=== PATIENT | female | born 1950 | race Caucasian/White ===

== ENCOUNTER 2016-10-31 20:06 | Emergency (ER) | payer MEDICARE, MEDICAID ==
[~2016-10-31] VITALS: Ht 165.1 cm; Wt 50.0 kg
[~2016-10-31 20:06] MED LIST: ALPR0.5T96 PO; ASPI-1035 PO
[2016-10-31 21:46] LABS: EOSINOPHILS % 1.9 % (0.0-5.0); HEMATOCRIT. 37.8 % (36.0-48.0); HEMOGLOBIN. 12.4 g/dL (12.0-16.0); LYMPHOCYTES % 23.9 % (20.0-50.0); MEAN CORPUSCULAR HEMOGLOBIN 27.8 pg (28.0-32.0); MEAN CORPUSCULAR HGB CONC 32.9 g/dL (31.0-37.0); MEAN CORPUSCULAR VOLUME 84.5 fL (81.0-99.0); MEAN PLATELET VOLUME 7.6 fl (7.4-10.4); MONOCYTES % 6.7 % (2.0-8.0); NEUTROPHILS % 66.5 % (40.0-76.0); PLATELET 202 x1000/uL (130-400); RED BLOOD CELL COUNT 4.47 mill/uL (4.2-5.4); RED CELL DISTRIBUTION WIDTH 16.1 % (11.6-14.6); WHITE BLOOD COUNT 8.2 x1000/uL (4.5-11.0)
[2016-10-31 21:48] LABS: CLARITY URINE CLEAR (CLEAR); COLOR URINE YELLOW (YELLOW); GLUCOSE URINE NEGATIVE (NEGATIVE); KETONES URINE NEGATIVE (NEGATIVE); LEUKOCYTE ESTERASE URINE NEGATIVE (NEGATIVE); NITRITE URINE NEGATIVE (NEGATIVE); OCCULT BLOOD URINE NEGATIVE (NEGATIVE); PH URINE 7.5 (4.5-8.0); PROTEIN URINE NEGATIVE (NEGATIVE); SPECIFIC GRAVITY URINE 1.007 (1.005-1.030); UROBILINOGEN URINE 0.2 E.U./dL (0.2-1.0)
[2016-10-31 21:54] LABS: PARTIAL THROMBOPLASTIN TIME 28.9 sec (24.0-34.0); PROTHROMBIN TIME 10.9 sec
[2016-10-31 21:55] LABS: ALBUMIN 3.6 g/dL (3.4-5.0); ANION GAP 14; CALCIUM 9.3 mg/dL (8.5-10.1); CARBON DIOXIDE 28 mEq/L (21-32); CHLORIDE 102 mEq/L (98-107); INDEX HEMOLYSI 1 (1-3); INDEX ICTERIC 1 (1-4); INDEX LIPEMIC 1 (1-3); UREA NITROGEN BLOOD 15 mg/dL (7-21)
[2016-10-31 22:01] LABS: ALANINE AMINOTRANSFERASE 40 IU/L (13-61); eGFR > 60 mL/min (>60)
[2016-10-31 22:02] LABS: TROPONIN I 0.05 ng/mL (0.00-0.04)
[2016-10-31] MEDS ORDERED: ACETAMINOPHEN 325MG TABLET PO ONE (22:15)
[2016-10-31] MEDS ORDERED: LABETALOL 5MG/ML SYR 20 MG/4 ML SYRINGE IV ONE (22:15)
[2016-10-31 23:54] VITALS: BP 179/84
== END 2016-10-31 23:55 | disposition home or self-care (01) ==
LOC: ER 20:06
DX: F15.10 Other stimulant abuse, uncomplicated (principal); I45.6 Pre-excitation syndrome; R00.0 Tachycardia, unspecified; I10 Essential (primary) hypertension; Z86.73 Personal history of transient ischemic attack (TIA), and cerebral infarction without residual deficits; G40.909 Epilepsy, unspecified, not intractable, without status epilepticus; Z86.718 Personal history of other venous thrombosis and embolism; Z79.01 Long term (current) use of anticoagulants; Z88.6 Allergy status to analgesic agent
CPT/HCPCS: 36415; 71010; 80053; 81003; 84484; 85025; 85610; 85730; 93005; 96374; 99285; J3490

== ENCOUNTER 2017-02-22 14:12 | Inpatient (IN) | payer MEDICARE, MEDICAID ==
[~2017-02-22] VITALS: Ht 170.2 cm; Wt 53.2 kg
[~2017-02-22 14:12] MED LIST changes: -ASPI-1035 PO; +ASPI-1159 PO; +CLOP75TA33 PO; +HYDR12.54 PO; +LOSA50TA20 PO
[2017-02-22] MEDS ORDERED: MORPHINE SULFATE 4 MG/ML CPJ (NOT FOR IM USE) IV STA (14:33)
[2017-02-22] MEDS ORDERED: ASPIRIN 81MG TABLET PO STA (14:33)
[2017-02-22] MEDS ORDERED: ONDANSETRON HCL 4MG/2ML VIAL IV STA (14:33)
[2017-02-22] MEDS ORDERED: NITROGLYCERIN OINT 1GM/INCH UDPKT TD STA (14:33)
[2017-02-22 15:36] LABS: BASOPHILS % 0.6 % (0.0-2.0); EOSINOPHILS % 3.2 % (0.0-5.0); HEMATOCRIT. 41.6 % (36.0-48.0); HEMOGLOBIN. 13.6 g/dL (12.0-16.0); LYMPHOCYTES % 13.9 % (20.0-50.0); MEAN CORPUSCULAR HEMOGLOBIN 28.9 pg (28.0-32.0); MEAN CORPUSCULAR VOLUME 88.4 fL (81.0-99.0); MEAN PLATELET VOLUME 7.4 fl (7.4-10.4); MONOCYTES % 6.2 % (2.0-8.0); NEUTROPHILS % 76.1 % (40.0-76.0); PLATELET 249 x1000/uL (130-400); RED BLOOD CELL COUNT 4.71 mill/uL (4.2-5.4); RED CELL DISTRIBUTION WIDTH 16.7 % (11.6-14.6)
[2017-02-22 15:38] LABS: CHLORIDE 101 mEq/L (98-107)
[2017-02-22 15:40] LABS: INR 1.1; PARTIAL THROMBOPLASTIN TIME 26.3 sec (24.0-34.0); PROTHROMBIN TIME 11.2 sec
[2017-02-22 15:43] LABS: CARBON DIOXIDE 29 mEq/L (21-32)
[2017-02-22 15:48] LABS: TROPONIN I < 0.02 ng/mL (0.00-0.04)
[2017-02-22] MEDS ORDERED: HYDRALAZINE 20MG/ML VIAL ONE (16:01)
[2017-02-22 16:38] VITALS: BP 169/70
[2017-02-22 16:44] VITALS: BP 169/70
[2017-02-22 17:00] VITALS: BP 177/133
[2017-02-22] MEDS ORDERED: FLUT1DIS6 IH (17:33)
[2017-02-22] MEDS ORDERED: CILO100T PO (17:33)
[2017-02-22] MEDS ORDERED: ATOR40TA70 PO (17:33)
[2017-02-22] MEDS ORDERED: HYDR28CR28 TP (17:33)
[2017-02-22] MEDS ORDERED: FLUT12AE3 IH (17:33)
[2017-02-22] MEDS ORDERED: HYDR25TA PO (17:33)
[2017-02-22] MEDS ORDERED: AMLO10TA80 PO (17:33)
[2017-02-22] MEDS ORDERED: DIPH50CA38 PO (17:33)
[2017-02-22] MEDS ORDERED: ALBU6.7H IH (17:33)
[2017-02-22] MEDS ORDERED: PENT400T2 PO (17:33)
[2017-02-22] MEDS ORDERED: NICO1PAT15 TP (17:33)
[2017-02-22] MEDS ORDERED: METH10OR11 PO (17:34)
[2017-02-22] MEDS ORDERED: GUAIFENESIN 200MG/10ML SUGAR FREE UDC PO PRN (17:45)
[2017-02-22] MEDS ORDERED: MAGNESIUM/ALUMINUM HYDROXIDE/SIMETHICONE 30ML UDC PO PRN (17:45)
[2017-02-22] MEDS ORDERED: TRAMADOL 50MG TABLET PO PRN (17:45)
[2017-02-22] MEDS ORDERED: ZOLPIDEM TARTRATE 5MG TABLET PO PRN (17:45)
[2017-02-22] MEDS ORDERED: ACETAMINOPHEN 325MG TABLET PO PRN (17:45)
[2017-02-22] MEDS ORDERED: NA PHOS,M-B/NA PHOS,DI-BA ENEMA 118ML PR PRN (17:45)
[2017-02-22] MEDS ORDERED: NITROGLYCERIN 0.4MG TABLET SL SL PRN (17:45)
[2017-02-22] MEDS ORDERED: IPRATROPIUM/ALBUTEROL 0.5-3(2.5)MG/3ML NEB INH PRN (17:45)
[2017-02-22] MEDS ORDERED: DIPHENHYDRAMINE 50MG/ML VIAL IV PRN (17:45)
[2017-02-22] MEDS ORDERED: CLONIDINE 0.1MG TABLET PO PRN (17:45)
[2017-02-22] MEDS ORDERED: DOCUSATE SODIUM 100MG CAPSULE PO PRN (17:45)
[2017-02-22] MEDS ORDERED: ONDANSETRON HCL 4MG/2ML VIAL IV PRN (17:45)
[2017-02-22] MEDS ORDERED: ENOXAPARIN 40MG/0.4ML SYR SUBCUT SCH (18:00)
[2017-02-22] MEDS: LORAZEPAM 2MG/ML CPJ IV PRN ×2 (18:26→20:48)
[2017-02-22 18:27] VITALS: BP 177/72
[2017-02-22] MEDS: CLOPIDOGREL 75MG TABLET PO SCH (18:27)
[2017-02-22] MEDS: AMLODIPINE 10MG TABLET PO SCH (18:27)
[2017-02-22] MEDS ORDERED: PNEUMOCOCCAL 23-VAL P-SAC VAC 0.5 ML IM ONE (19:15)
[2017-02-22 19:53] VITALS: BP 173/73
[2017-02-22] MEDS: SUCRALFATE 1 G/10 ML UDC PO SCH (20:47)
[2017-02-22] MEDS: LISINOPRIL 20MG TABLET PO SCH (20:48)
[2017-02-22] MEDS: METOPROLOL TARTRATE 25MG TABLET PO SCH (20:48)
[2017-02-22] MEDS ORDERED: POTASSIUM CHLORIDE 20MEQ TABLET SR PO NR (21:00)
[2017-02-22 22:00] VITALS: BP 123/58
[2017-02-22 23:12] LABS: CREATINE KINASE 29 IU/L (26-192); CREATINE KINASE MB FRACTION 1.3 ng/mL (0.5-3.6); TROPONIN I < 0.02 ng/mL (0.00-0.04)
[2017-02-23] VITALS (8 sets, daily range): BP systolic 97–123; BP diastolic 37–66
[2017-02-23] MEDS ORDERED: MAGNESIUM 2 G PREMIX 50 ML IV NR (02:00)
[2017-02-23] MEDS: SUCRALFATE 1 G/10 ML UDC PO SCH ×2 (06:40→11:50)
[2017-02-23 06:52] LABS: CREATINE KINASE 23 IU/L (26-192); HDL CHOLESTEROL 44 mg/dL (40-59); LDL CHOLESTEROL 89 mg/dL (5-100); TROPONIN I < 0.02 ng/mL (0.00-0.04)
[2017-02-23 06:57] LABS: *AMPHETAMINES SCREEN URINE NEGATIVE (NEGATIVE); *BARBITURATES SCREEN URINE NEGATIVE (NEGATIVE); *BENZODIAZEPINES SCREEN URINE PRESUMTIVE POSITIVE (NEGATIVE); *COCAINE SCREEN URINE NEGATIVE (NEGATIVE); CANNABINOID URINE SCREEN NEGATIVE (NEGATIVE); OPIATES URINE SCREEN PRESUMTIVE POSITIVE (NEGATIVE); PHENCYCLIDINE URINE SCREEN NEGATIVE (NEGATIVE)
[2017-02-23 07:18] LABS: METHADONE URINE SCREEN PRESUMTIVE POSITIVE (NEGATIVE)
[2017-02-23] MEDS ORDERED: ASPIRIN 325MG EC TABLET PO SCH (09:00)
[2017-02-23] MEDS ORDERED: PANTOPRAZOLE SODIUM 40 MG/VIAL IV SCH (09:00)
[2017-02-23] MEDS: LORAZEPAM 2MG/ML CPJ IV PRN (09:01)
[2017-02-23] MEDS: METOPROLOL TARTRATE 25MG TABLET PO SCH (09:03)
[2017-02-23] MEDS: CLOPIDOGREL 75MG TABLET PO SCH (09:03)
[2017-02-23] MEDS: LISINOPRIL 20MG TABLET PO SCH (09:05)
[2017-02-23] MEDS: AMLODIPINE 10MG TABLET PO SCH (09:05)
[2017-02-23] MEDS ORDERED: BUDESONIDE 0.5MG/2ML NEB ONE (16:08)
== END 2017-02-23 13:17 | disposition home or self-care (01) | DRG 194 ==
LOC: ER 14:15 → 3WST 15:06 → EDBEDREQ 15:11 → ENRESERV 15:28
PROVIDERS: ADMIT Internal Medicine; ATTEND Internal Medicine
DX: I11.0 Hypertensive heart disease with heart failure (principal); J44.9 Chronic obstructive pulmonary disease, unspecified; I73.9 Peripheral vascular disease, unspecified; R07.89 Other chest pain; I25.10 Atherosclerotic heart disease of native coronary artery without angina pectoris; I50.33 Acute on chronic diastolic (congestive) heart failure; E78.00 Pure hypercholesterolemia, unspecified; E87.6 Hypokalemia; F17.210 Nicotine dependence, cigarettes, uncomplicated; I45.6 Pre-excitation syndrome; F19.10 Other psychoactive substance abuse, uncomplicated; G40.909 Epilepsy, unspecified, not intractable, without status epilepticus; Z79.82 Long term (current) use of aspirin; Z88.0 Allergy status to penicillin; Z88.6 Allergy status to analgesic agent; Z88.8 Allergy status to other drugs, medicaments and biological substances; Z79.899 Other long term (current) drug therapy; Z71.6 Tobacco abuse counseling
CPT/HCPCS: 36415; 71010; 80053; 80061; 80305; 82550; 82553; 83036; 83690; 83735; 83880; 84443; 84484; 85025; 85610; 85730; 90732; 93005; 93306; 93970; 96374; 96375; 99291; C9113; J0360; J1650; J2060; J2270; J2405; J3475; J7040; J7626

== ENCOUNTER 2017-03-31 16:28 | Emergency (ER) | payer MEDICARE, MEDICAID ==
[~2017-03-31] VITALS: Ht 170.2 cm; Wt 62.0 kg
[~2017-03-31 16:28] MED LIST changes: +ALBU6.7H IH; +ALPR0.5T PO; -ALPR0.5T96 PO; +AMLO10TA80 PO; +ATOR40TA70 PO; +CILO100T PO; +DIPH50CA38 PO; +FLUT12AE3 IH; +FLUT1DIS6 IH; -HYDR12.54 PO; +HYDR25TA PO; +HYDR28CR28 TP; +METH10OR11 PO; +NICO1PAT15 TP; +PENT400T2 PO
[2017-03-31 19:52] LABS: BASOPHILS % 0.9 % (0.0-2.0); EOSINOPHILS % 5.2 % (0.0-5.0); HEMATOCRIT. 31.7 % (36.0-48.0); HEMOGLOBIN. 10.7 g/dL (12.0-16.0); LYMPHOCYTES % 25.4 % (20.0-50.0); MEAN CORPUSCULAR HEMOGLOBIN 29.9 pg (28.0-32.0); MEAN CORPUSCULAR VOLUME 88.7 fL (81.0-99.0); MONOCYTES % 8.3 % (2.0-8.0); NEUTROPHILS % 60.2 % (40.0-76.0); PLATELET 170 x1000/uL (130-400); RED BLOOD CELL COUNT 3.57 mill/uL (4.2-5.4); RED CELL DISTRIBUTION WIDTH 15.3 % (11.6-14.6)
[2017-03-31 19:58] LABS: INR 1.1
[2017-03-31 20:09] LABS: CARBON DIOXIDE 26 mEq/L (21-32); CHLORIDE 110 mEq/L (98-107); TROPONIN I < 0.02 ng/mL (0.00-0.04)
[2017-03-31 21:10] LABS: *AMPHETAMINES SCREEN URINE NEGATIVE (NEGATIVE); *BARBITURATES SCREEN URINE NEGATIVE (NEGATIVE); *BENZODIAZEPINES SCREEN URINE PRESUMTIVE POSITIVE (NEGATIVE); *COCAINE SCREEN URINE NEGATIVE (NEGATIVE); CANNABINOID URINE SCREEN NEGATIVE (NEGATIVE); METHADONE URINE SCREEN PRESUMTIVE POSITIVE (NEGATIVE); OPIATES URINE SCREEN NEGATIVE (NEGATIVE); PHENCYCLIDINE URINE SCREEN NEGATIVE (NEGATIVE)
[2017-03-31 21:20] VITALS: BP 124/58
== END 2017-03-31 21:20 | disposition home or self-care (01) ==
LOC: ER 19:04
DX: I24.9 Acute ischemic heart disease, unspecified (principal); F11.10 Opioid abuse, uncomplicated; Z88.0 Allergy status to penicillin; Z88.6 Allergy status to analgesic agent; Z79.82 Long term (current) use of aspirin
CPT/HCPCS: 36415; 71010; 80048; 80305; 83880; 84484; 85025; 85610; 93005; 99285

== ENCOUNTER 2017-07-23 20:02 | Inpatient (IN) | payer MEDICARE, MEDICAID ==
[~2017-07-23] VITALS: Ht 170.2 cm; Wt 49.9 kg
[2017-07-23] MEDS ORDERED: METHYLPREDNISOLONE SOD SUCC 125 MG/2 ML VIAL IV STA (23:04)
[2017-07-23] MEDS ORDERED: PREDNISONE 20MG TABLET PO STA (23:04)
[2017-07-23] MEDS ORDERED: ALBUTEROL (0.083%) 2.5MG/3ML NEB HHN STA (23:04)
[2017-07-23] MEDS ORDERED: IPRATROPIUM BROMIDE (0.02%) 0.5MG/2.5ML NEB HHN STA (23:04)
[2017-07-23] MEDS ORDERED: ASPIRIN 81MG TABLET PO ONE (23:15)
[2017-07-23] MEDS ORDERED: LABETALOL HCL 20MG/4ML CARPUJECT IV ONE (23:15)
[2017-07-23] MEDS ORDERED: NITROGLYCERIN 0.4MG TABLET SL SL ONE (23:15)
[2017-07-23] MEDS ORDERED: MAGNESIUM 2 G PREMIX 50 ML IV ONE (23:15)
[2017-07-23] MEDS ORDERED: LABETALOL 5MG/ML SYR 20 MG/4 ML SYRINGE IV SCH (23:24)
[2017-07-23 23:37] LABS: BASOPHILS % 0.3 % (0.0-2.0); EOSINOPHILS % 1.2 % (0.0-5.0); HEMATOCRIT. 38.1 % (36.0-48.0); HEMOGLOBIN. 12.4 g/dL (12.0-16.0); MEAN CORPUSCULAR HEMOGLOBIN 25.7 pg (28.0-32.0); MEAN CORPUSCULAR VOLUME 79.1 fL (81.0-99.0); MEAN PLATELET VOLUME 7.6 fl (7.4-10.4); MONOCYTES % 10.9 % (2.0-8.0); NEUTROPHILS % 70.6 % (40.0-76.0); PLATELET 362 x1000/uL (130-400); RED BLOOD CELL COUNT 4.82 mill/uL (4.2-5.4); RED CELL DISTRIBUTION WIDTH 16.7 % (11.6-14.6)
[2017-07-23 23:38] LABS: CHLORIDE 95 mEq/L (98-107)
[2017-07-23 23:39] LABS: PROTHROMBIN TIME 10.8 sec (9.4-11.6)
[2017-07-23 23:48] LABS: CARBON DIOXIDE 32 mEq/L (21-32); TROPONIN I 0.13 ng/mL (0.00-0.04)
[2017-07-24] MEDS ORDERED: FUROSEMIDE 100MG/10ML VIAL IVP ONE (01:15)
[2017-07-24] MEDS ORDERED: POTASSIUM CHLORIDE 20MEQ TABLET SR PO SCH (01:15)
[2017-07-24] MEDS ORDERED: POTASSIUM CHLORIDE INJ 40 MEQ in DEXT 5% WATER 500 ML IV ONE (01:15)
[2017-07-24 03:00] LABS: *AMPHETAMINES SCREEN URINE NEGATIVE (NEGATIVE); *BARBITURATES SCREEN URINE NEGATIVE (NEGATIVE); *BENZODIAZEPINES SCREEN URINE PRESUMTIVE POSITIVE (NEGATIVE); *COCAINE SCREEN URINE NEGATIVE (NEGATIVE); CANNABINOID URINE SCREEN NEGATIVE (NEGATIVE); OPIATES URINE SCREEN PRESUMTIVE POSITIVE (NEGATIVE); PHENCYCLIDINE URINE SCREEN NEGATIVE (NEGATIVE)
[2017-07-24 03:02] LABS: METHADONE URINE SCREEN PRESUMTIVE POSITIVE (NEGATIVE)
[2017-07-24] MEDS ORDERED: GABAPENTIN 100MG CAPSULE PO ONE (04:45)
[2017-07-24] MEDS ORDERED: MAGNESIUM/ALUMINUM HYDROXIDE/SIMETHICONE 30ML UDC PO PRN (06:30)
[2017-07-24] MEDS ORDERED: DOCUSATE SODIUM 100MG CAPSULE PO PRN (06:30)
[2017-07-24] MEDS ORDERED: NA PHOS,M-B/NA PHOS,DI-BA ENEMA 118ML PR PRN (06:30)
[2017-07-24] MEDS ORDERED: CLONIDINE 0.1MG TABLET PO PRN (06:30)
[2017-07-24] MEDS ORDERED: LEVOFLOXACIN 500MG PREMIX 100 ML IV SCH (06:30)
[2017-07-24] MEDS ORDERED: ONDANSETRON HCL 4MG/2ML VIAL IV PRN (06:30)
[2017-07-24] MEDS ORDERED: IPRATROPIUM/ALBUTEROL 0.5-3(2.5)MG/3ML NEB INH PRN (06:30)
[2017-07-24] MEDS ORDERED: HYDROCODONE/ACETAMINOPHEN 10/325MG TABLET PO PRN (06:30)
[2017-07-24] MEDS ORDERED: METHYLPREDNISOLONE SOD SUCC 125 MG/2 ML VIAL IV SCH (06:30)
[2017-07-24] MEDS ORDERED: MORPHINE SULFATE 2 MG/ML CPJ (NOT FOR IM USE) IV PRN (06:30)
[2017-07-24] MEDS ORDERED: GUAIFENESIN 200MG/10ML SUGAR FREE UDC PO PRN (06:30)
[2017-07-24] MEDS: ACETAMINOPHEN 325MG TABLET PO PRN ×2 (08:30→15:44)
[2017-07-24] MEDS ORDERED: QUETIAPINE FUMARATE 100MG TABLET PO SCH (09:00)
[2017-07-24] MEDS ORDERED: ASPIRIN 81MG EC TABLET PO SCH (09:00)
[2017-07-24] MEDS: LORAZEPAM 2MG/ML CPJ IV PRN ×3 (10:10→21:54)
[2017-07-24 15:09] LABS: BG BASE EXCESS 7.8 mmol/L (-2.0-2.0); BG CARBOXYHEMOGLOBIN 0.4 % (0.5-1.5); BG DEOXYHEMOGLOBIN 7.8 % (0.0-5.0); BG METHEMOGLOBIN 0.3 % (0.0-1.5); BG OXYGEN SATURATION 92.1 % (92.0-98.5); BG OXYHEMOGLOBIN 91.5 % (94.0-97.0); BG PH 7.529 (7.350-7.450); BG PO2 60.3 mmHg (75.0-100.0); BG SAMPLE SITE RIGHT RADIAL; BG TOTAL HEMOGLOBIN 12.7 g/dL (12.0-18.0); BG VENT MODE ROOM AIR
[2017-07-24 16:00] VITALS: BP 165/57
[2017-07-24 16:20] VITALS: BP 165/57
[2017-07-24 16:33] VITALS: BP 165/57
[2017-07-24] MEDS ORDERED: PREDNISONE 20MG TABLET PO SCH (17:00)
[2017-07-24] MEDS ORDERED: ENOXAPARIN 40MG/0.4ML SYR SUBCUT SCH (17:00)
[2017-07-24] MEDS ORDERED: FUROSEMIDE 40MG/4ML VIAL IVP SCH (17:00)
[2017-07-24] MEDS ORDERED: BUDESONIDE 0.5MG/2ML NEB HHN SCH (18:00)
[2017-07-24] MEDS ORDERED: LEVOFLOXACIN 750MG PREMIX 150 ML IV SCH (18:00)
[2017-07-24 20:00] VITALS: BP 172/57
[2017-07-24] MEDS: IPRATROPIUM/ALBUTEROL 0.5-3(2.5)MG/3ML NEB HHN SCH (20:25)
[2017-07-24] MEDS: DIPHENHYDRAMINE 50MG/ML VIAL IV PRN (22:38)
[2017-07-25 00:28] LABS: CREATINE KINASE MB FRACTION 0.9 ng/mL (0.5-3.6); T4 FREE 1.43 ng/dL (0.76-1.46); TROPONIN I 0.05 ng/mL (0.00-0.04)
[2017-07-25 00:39] VITALS: BP 188/78
[2017-07-25] MEDS: IPRATROPIUM/ALBUTEROL 0.5-3(2.5)MG/3ML NEB HHN SCH (01:07)
[2017-07-25] MEDS: DIPHENHYDRAMINE 50MG/ML VIAL IV PRN (03:37)
[2017-07-25] MEDS: LORAZEPAM 2MG/ML CPJ IV PRN (03:37)
[2017-07-25 04:00] VITALS: BP 150/87
[2017-07-25 07:07] LABS: BASOPHILS % 0.2 % (0.0-2.0); HEMATOCRIT. 35.7 % (36.0-48.0); HEMOGLOBIN. 11.8 g/dL (12.0-16.0); LYMPHOCYTES % 9.6 % (20.0-50.0); MEAN CORPUSCULAR VOLUME 78.4 fL (81.0-99.0); MONOCYTES % 12.4 % (2.0-8.0); NEUTROPHILS % 77.8 % (40.0-76.0); PLATELET 425 x1000/uL (130-400); RED BLOOD CELL COUNT 4.55 mill/uL (4.2-5.4); RED CELL DISTRIBUTION WIDTH 16.9 % (11.6-14.6)
[2017-07-25 08:02] LABS: CARBON DIOXIDE 30 mEq/L (21-32); CHLORIDE 94 mEq/L (98-107); CREATINE KINASE 19 IU/L (26-192); CREATINE KINASE MB FRACTION 1.2 ng/mL (0.5-3.6); HDL CHOLESTEROL 58 mg/dL (40-59); LDL CHOLESTEROL 126 mg/dL (5-100)
[2017-07-25] MEDS ORDERED: FUROSEMIDE 40MG/4ML VIAL IVP SCH (09:00)
[2017-07-25] MEDS ORDERED: ASPIRIN 81MG TABLET PO SCH (09:00)
[2017-07-25 12:02] LABS: HEPATITIS B SURFACE ANTIGEN NEGATIVE
[2017-07-25 12:28] LABS: HEPATITIS B CORE AB IGM NEGATIVE
[2017-07-25 12:29] LABS: HEPATITIS A AB IGM NEGATIVE (NEGATIVE)
== END 2017-07-25 06:30 | disposition left against medical advice (07) | DRG 140 ==
LOC: ER 21:10 → 7WST 07-24 01:27 → EDBEDREQDT 07-24 01:31 → EDBEDREQ 07-24 01:31 → EDBEDREQTM 07-24 01:31 → ENRESERV 07-24 13:55
PROVIDERS: ADMIT Internal Medicine; ATTEND Internal Medicine
DX: J44.1 Chronic obstructive pulmonary disease with (acute) exacerbation (principal); J96.00 Acute respiratory failure, unspecified whether with hypoxia or hypercapnia; I50.33 Acute on chronic diastolic (congestive) heart failure; E87.3 Alkalosis; I11.0 Hypertensive heart disease with heart failure; R65.10 Systemic inflammatory response syndrome (SIRS) of non-infectious origin without acute organ dysfunction; Z99.81 Dependence on supplemental oxygen; I73.9 Peripheral vascular disease, unspecified; F19.90 Other psychoactive substance use, unspecified, uncomplicated; Z96.653 Presence of artificial knee joint, bilateral; I25.2 Old myocardial infarction; Z79.82 Long term (current) use of aspirin; Z79.899 Other long term (current) drug therapy; Z87.891 Personal history of nicotine dependence; Z88.9 Allergy status to unspecified drugs, medicaments and biological substances; Z88.0 Allergy status to penicillin; Z53.21 Procedure and treatment not carried out due to patient leaving prior to being seen by health care provider
CPT/HCPCS: 36415; 36600; 71010; 80048; 80053; 80061; 80305; 82375; 82550; 82553; 82805; 83036; 83605; 83880; 84439; 84443; 84484; 85025; 85610; 86705; 86709; 86803; 87040; 87077; 87186; 87340; 93005; 93970; 94664; 96365; 96366; 96367; 96375; 99285; J1200; J1650; J1940; J1956; J2060; J2930; J3475; J3480; J3490; J7040; J7060; J7512; J7620; J7626

== ENCOUNTER 2017-10-22 11:33 | Emergency (ER) | payer MEDICARE, MEDICAID ==
[~2017-10-22] VITALS: Ht 170.2 cm; Wt 52.0 kg
[2017-10-22 13:15] LABS: EOSINOPHILS % 2.5 % (0.0-5.0); HEMATOCRIT. 46.4 % (36.0-48.0); HEMOGLOBIN. 15.9 g/dL (12.0-16.0); MEAN CORPUSCULAR HEMOGLOBIN 26.5 pg (28.0-32.0); MEAN CORPUSCULAR VOLUME 77.4 fL (81.0-99.0); MEAN PLATELET VOLUME 7.2 fl (7.4-10.4); MONOCYTES % 6.5 % (2.0-8.0); PLATELET 388 x1000/uL (130-400); RED BLOOD CELL COUNT 5.99 mill/uL (4.2-5.4); RED CELL DISTRIBUTION WIDTH 17.8 % (11.6-14.6)
[2017-10-22 13:20] LABS: INR 1.1; PROTHROMBIN TIME 11.2 sec (9.4-11.6)
[2017-10-22 13:27] VITALS: BP 213/121
[2017-10-22 13:27] LABS: CHLORIDE 102 mEq/L (98-107); ETHANOL BLOOD < 10 mg/dL
[2017-10-22] MEDS ORDERED: ASPIRIN 81MG TABLET PO ONE (13:45)
[2017-10-22] MEDS ORDERED: NITROGLYCERIN 0.4MG TABLET SL SL ONE (13:45)
== END 2017-10-22 14:08 | disposition left against medical advice (07) ==
LOC: ER 13:45
DX: R07.89 Other chest pain (principal); I11.9 Hypertensive heart disease without heart failure; F17.210 Nicotine dependence, cigarettes, uncomplicated; Z79.82 Long term (current) use of aspirin; Z88.6 Allergy status to analgesic agent; Z88.0 Allergy status to penicillin
CPT/HCPCS: 36415; 80053; 83880; 84484; 85025; 85610; 93005; 99285; G0482

== ENCOUNTER 2017-12-01 23:04 | Emergency (ER) | payer MEDICARE, MEDICAID ==
[~2017-12-01] VITALS: Ht 170.2 cm; Wt 50.0 kg
[2017-12-01] MEDS ORDERED: LABETALOL HCL 20MG/4ML CARPUJECT IV ONE (23:45)
[2017-12-01] MEDS ORDERED: HYDROCODONE/ACETAMINOPHEN 10/325MG TABLET PO ONE (23:45)
[2017-12-01] MEDS ORDERED: NITROGLYCERIN OINT 1GM/INCH UDPKT TD ONE (23:45)
[2017-12-01] MEDS ORDERED: ASPIRIN 81MG TABLET PO ONE (23:45)
[2017-12-02 00:10] LABS: HEMATOCRIT. 47.9 % (36.0-48.0); HEMOGLOBIN. 16.5 g/dL (12.0-16.0); MEAN CORPUSCULAR HEMOGLOBIN 26.6 pg (28.0-32.0); MEAN CORPUSCULAR VOLUME 77.4 fL (81.0-99.0); MEAN PLATELET VOLUME 6.8 fl (7.4-10.4); MONOCYTES % 10.5 % (2.0-8.0); NEUTROPHILS % 66.5 % (40.0-76.0); PLATELET 260 x1000/uL (130-400); RED BLOOD CELL COUNT 6.19 mill/uL (4.2-5.4); RED CELL DISTRIBUTION WIDTH 18.2 % (11.6-14.6)
[2017-12-02 00:12] LABS: CHLORIDE 95 mEq/L (98-107)
[2017-12-02] MEDS ORDERED: LABETALOL 5MG/ML SYR 20 MG/4 ML SYRINGE IV NR (00:15)
[2017-12-02 00:16] LABS: ETHANOL BLOOD < 10 mg/dL
[2017-12-02 00:17] LABS: INR 1.1; PROTHROMBIN TIME 10.9 sec (9.4-11.6)
[2017-12-02 00:59] LABS: CLARITY URINE CLEAR (CLEAR); COLOR URINE YELLOW (YELLOW); KETONES URINE NEGATIVE (NEGATIVE); LEUKOCYTE ESTERASE URINE NEGATIVE (NEGATIVE); NITRITE URINE NEGATIVE (NEGATIVE); OCCULT BLOOD URINE TRACE (NEGATIVE); PH URINE 7.5 (4.5-8.0); PROTEIN URINE 4+ (NEGATIVE); SPECIFIC GRAVITY URINE 1.011 (1.005-1.030); UROBILINOGEN URINE 0.2 E.U./dL (0.2-1.0)
[2017-12-02 01:21] LABS: *AMPHETAMINES SCREEN URINE NEGATIVE (NEGATIVE); *BARBITURATES SCREEN URINE NEGATIVE (NEGATIVE); *BENZODIAZEPINES SCREEN URINE NEGATIVE (NEGATIVE); *COCAINE SCREEN URINE NEGATIVE (NEGATIVE)
[2017-12-02 01:22] LABS: CANNABINOID URINE SCREEN NEGATIVE (NEGATIVE); OPIATES URINE SCREEN NEGATIVE (NEGATIVE); PHENCYCLIDINE URINE SCREEN NEGATIVE (NEGATIVE)
[2017-12-02 01:25] LABS: METHADONE URINE SCREEN PRESUMTIVE POSITIVE (NEGATIVE)
[2017-12-02] MEDS ORDERED: POTASSIUM BICARB/CIT ACID 25 MEQ TABLET.EFF PO NR (02:15)
[2017-12-02] MEDS ORDERED: ACETAMINOPHEN 325MG TABLET PO NR (05:00)
[2017-12-02 06:17] VITALS: BP 165/78
== END 2017-12-02 06:31 | disposition home or self-care (01) ==
LOC: ER 23:04
DX: I16.0 Hypertensive urgency (principal); R51 Headache; R11.2 Nausea with vomiting, unspecified; I11.9 Hypertensive heart disease without heart failure; I51.7 Cardiomegaly; F20.9 Schizophrenia, unspecified; Z86.73 Personal history of transient ischemic attack (TIA), and cerebral infarction without residual deficits; Z88.0 Allergy status to penicillin; Z88.6 Allergy status to analgesic agent; F17.210 Nicotine dependence, cigarettes, uncomplicated; Z91.14 Patient's other noncompliance with medication regimen; Z79.82 Long term (current) use of aspirin
CPT/HCPCS: 36415; 70450; 71045; 80053; 80305; 81003; 82962; 83690; 83880; 84484; 85025; 85610; 93005; 96374; 99285; G0482; J3490

== ENCOUNTER 2018-04-21 13:16 | Emergency (ER) | payer MEDICARE, MEDICAID ==
[~2018-04-21] VITALS: Ht 167.6 cm; Wt 50.0 kg
[~2018-04-21 13:16] MED LIST changes: +PENT400T11 PO; -PENT400T2 PO
[2018-04-21 14:41] LABS: BASOPHILS % 1.3 % (0.0-2.0); EOSINOPHILS % 2.7 % (0.0-5.0); HEMATOCRIT. 33.2 % (36.0-48.0); HEMOGLOBIN. 10.9 g/dL (12.0-16.0); LYMPHOCYTES % 27.6 % (20.0-50.0); MEAN CORPUSCULAR HEMOGLOBIN 26.4 pg (28.0-32.0); MEAN CORPUSCULAR VOLUME 80.5 fL (81.0-99.0); MEAN PLATELET VOLUME 8.1 fl (7.4-10.4); MONOCYTES % 10.5 % (2.0-8.0); NEUTROPHILS % 57.9 % (40.0-76.0); PLATELET 281 x1000/uL (130-400); RED BLOOD CELL COUNT 4.12 mill/uL (4.2-5.4)
[2018-04-21 14:50] LABS: INR 1.1; PROTHROMBIN TIME 10.9 sec (9.1-11.1)
[2018-04-21 15:00] LABS: CHLORIDE 108 mEq/L (98-107)
[2018-04-21 16:00] VITALS: BP 129/87
== END 2018-04-21 18:45 | disposition left against medical advice (07) ==
LOC: ER 13:53
DX: N17.9 Acute kidney failure, unspecified (principal); I11.0 Hypertensive heart disease with heart failure; I50.9 Heart failure, unspecified; R61 Generalized hyperhidrosis; E86.0 Dehydration; D53.9 Nutritional anemia, unspecified; D72.821 Monocytosis (symptomatic); E88.09 Other disorders of plasma-protein metabolism, not elsewhere classified; E87.8 Other disorders of electrolyte and fluid balance, not elsewhere classified; E87.70 Fluid overload, unspecified; E11.65 Type 2 diabetes mellitus with hyperglycemia; F41.9 Anxiety disorder, unspecified; F17.200 Nicotine dependence, unspecified, uncomplicated; F11.10 Opioid abuse, uncomplicated; Z86.73 Personal history of transient ischemic attack (TIA), and cerebral infarction without residual deficits; Z98.890 Other specified postprocedural states; Z79.82 Long term (current) use of aspirin; Z79.899 Other long term (current) drug therapy; Z88.0 Allergy status to penicillin; Z88.6 Allergy status to analgesic agent
CPT/HCPCS: 36415; 71045; 80053; 83036; 83735; 84484; 85025; 85610; 87040; 93005; 99285

== ENCOUNTER 2018-08-21 13:06 | Inpatient (IN) | payer MEDICARE, MEDICAID ==
[~2018-08-21] VITALS: Ht 168.9 cm; Wt 52.6 kg
[2018-08-21] MEDS ORDERED: ONDANSETRON HCL 4MG/2ML INJ IV STA (13:56)
[2018-08-21] MEDS ORDERED: SODIUM CHLORIDE 0.9% 1,000 ML IV ONE (13:56)
[2018-08-21] MEDS ORDERED: IPRATROPIUM BROMIDE (0.02%) 0.5MG/2.5ML NEB HHN ONE (14:30)
[2018-08-21] MEDS ORDERED: ALBUTEROL (0.083%) 2.5MG/3ML NEB HHN ONE (14:30)
[2018-08-21 15:17] LABS: BASOPHILS % 0.7 % (0.0-2.0); HEMATOCRIT. 35.2 % (36.0-48.0); HEMOGLOBIN. 11.1 g/dL (12.0-16.0); LYMPHOCYTES % 20.5 % (20.0-50.0); MEAN CORPUSCULAR HEMOGLOBIN 24.6 pg (28.0-32.0); MEAN CORPUSCULAR VOLUME 77.9 fL (81.0-99.0); MEAN PLATELET VOLUME 8.2 fl (7.4-10.4); NEUTROPHILS % 69.8 % (40.0-76.0); PLATELET 210 x1000/uL (130-400); RED BLOOD CELL COUNT 4.52 mill/uL (4.2-5.4); RED CELL DISTRIBUTION WIDTH 18.7 % (11.6-14.6)
[2018-08-21 15:21] LABS: CHLORIDE 106 mEq/L (98-107)
[2018-08-21 15:22] LABS: BG BASE EXCESS 0.2 mmol/L (-2.0-2.0); BG DEOXYHEMOGLOBIN 1.2 % (0.0-5.0); BG FRACTION INSPIRED OXYGEN 60; BG HCO3 ACT 27.4 mmol/L (22.0-26.0); BG METHEMOGLOBIN 0.3 % (0.0-1.5); BG OXYGEN SATURATION 98.8 % (92.0-98.5); BG OXYHEMOGLOBIN 95.5 % (94.0-97.0); BG PCO2 56.1 mmHg (35.0-45.0); BG PH 7.306 (7.350-7.450); BG PO2 183.7 mmHg (75.0-100.0); BG SAMPLE SITE LEFT BRACHIAL; BG TOTAL HEMOGLOBIN 11.5 g/dL (12.0-18.0)
[2018-08-21 15:25] LABS: ETHANOL BLOOD < 10 mg/dL
[2018-08-21 19:07] LABS: CLARITY URINE CLEAR (CLEAR); COLOR URINE YELLOW (YELLOW); KETONES URINE NEGATIVE (NEGATIVE); LEUKOCYTE ESTERASE URINE 2+ (NEGATIVE); NITRITE URINE NEGATIVE (NEGATIVE); OCCULT BLOOD URINE NEGATIVE (NEGATIVE); PH URINE 6.5 (4.5-8.0); PROTEIN URINE 1+ (NEGATIVE); SPECIFIC GRAVITY URINE 1.006 (1.005-1.030); UROBILINOGEN URINE 0.2 E.U./dL (0.2-1.0)
[2018-08-21 19:22] LABS: *AMPHETAMINES SCREEN URINE NEGATIVE (NEGATIVE); *BARBITURATES SCREEN URINE NEGATIVE (NEGATIVE); *BENZODIAZEPINES SCREEN URINE NEGATIVE (NEGATIVE); *COCAINE SCREEN URINE NEGATIVE (NEGATIVE)
[2018-08-21 19:23] LABS: CANNABINOID URINE SCREEN NEGATIVE (NEGATIVE); OPIATES URINE SCREEN NEGATIVE (NEGATIVE); PHENCYCLIDINE URINE SCREEN NEGATIVE (NEGATIVE)
[2018-08-21] MEDS ORDERED: IOHEXOL-300 100 ML BOTTLE ONE (19:25)
[2018-08-21 19:27] LABS: METHADONE URINE SCREEN PRESUMTIVE POSITIVE (NEGATIVE)
[2018-08-21 21:00] VITALS: BP 168/82
[2018-08-21] MEDS ORDERED: SODIUM CHLORIDE 0.9% 1,000 ML IV SCH (21:56)
[2018-08-21 22:00] VITALS: BP 168/82
[2018-08-21] MEDS ORDERED: IPRATROPIUM/ALBUTEROL 0.5-3(2.5)MG/3ML NEB INH PRN (22:00)
[2018-08-21] MEDS ORDERED: MAGNESIUM/ALUMINUM HYDROXIDE/SIMETHICONE 30ML UDC PO PRN (22:00)
[2018-08-21] MEDS ORDERED: IPRATROPIUM/ALBUTEROL 0.5-3(2.5)MG/3ML NEB HHN SCH (22:00)
[2018-08-21] MEDS ORDERED: ONDANSETRON HCL 4MG/2ML INJ IV PRN (22:00)
[2018-08-21] MEDS ORDERED: ACETAMINOPHEN 325MG TABLET PO PRN (22:00)
[2018-08-21] MEDS ORDERED: CLONIDINE 0.1MG TABLET PO PRN (22:00)
[2018-08-21] MEDS ORDERED: DIPHENHYDRAMINE 50MG/ML VIAL IV PRN (22:00)
[2018-08-22] VITALS: BP 161/62
[2018-08-22 04:00] VITALS: BP 139/52
[2018-08-22 08:00] VITALS: BP 184/72
[2018-08-22] MEDS ORDERED: METHADONE HCL 10MG TABLET PO SCH (11:00)
== END 2018-08-22 11:00 | disposition left against medical advice (07) | DRG 469 ==
LOC: ER 13:06 → EDBD 13:59 → EDUNIT# 13:59 → 8WST 13:59 → EDBEDREQ 18:43 → ENRESERV 20:35
PROVIDERS: ADMIT Internal Medicine; ATTEND Internal Medicine
DX: N17.9 Acute kidney failure, unspecified (principal); E43 Unspecified severe protein-calorie malnutrition; I95.9 Hypotension, unspecified; G90.8 Other disorders of autonomic nervous system; J44.9 Chronic obstructive pulmonary disease, unspecified; I10 Essential (primary) hypertension; Z53.21 Procedure and treatment not carried out due to patient leaving prior to being seen by health care provider; R91.8 Other nonspecific abnormal finding of lung field; G62.9 Polyneuropathy, unspecified; Z85.05 Personal history of malignant neoplasm of liver; Z72.0 Tobacco use; Z86.73 Personal history of transient ischemic attack (TIA), and cerebral infarction without residual deficits; Z68.1 Body mass index [BMI] 19.9 or less, adult; Z88.1 Allergy status to other antibiotic agents
CPT/HCPCS: 36415; 36600; 71045; 71260; 80305; 82375; 82805; 83880; 84484; 93005; 94640; 96374; 99285; G0482; J2405; J7030; J7611; J7620; Q9967